=== PATIENT | female | born 1950 | race Two or more races ===

== ENCOUNTER → 2019-02-23 | Day surgery (SDC) | payer OTHER ==
[~2019-02-23] MED LIST: CALCI PO; CLONAZEPAM0.5 MG PO; COZAAR50 MG PO; DICLOFENAC SODI75 MG PO; ESKALITH300 MG PO; FOLIC ACID1 MG PO; KEFLEX250 MG PO; LYRICA200 MG PO; METFORMIN HCL500 MG PO; SYNTHROID100 MCG PO; ULTRACET PO; ZOCOR20 MG PO
== END | disposition home or self-care (01) ==
LOC: ADM 02-16 13:30 → CIR.AMB 05:12
DX: N32.81 Overactive bladder (principal); N39.41 Urge incontinence
CPT/HCPCS: 64581; C1778

== ENCOUNTER 2019-03-02 04:58 | Day surgery (SDC) | payer OTHER | END 2019-03-02 14:40 | disposition home or self-care (01) | LOC: CIR.AMB 04:58 | DX: N32.81 Overactive bladder (principal); N39.41 Urge incontinence; R35.0 Frequency of micturition | CPT/HCPCS: 64590; C1767 ==

== ENCOUNTER 2021-02-27 05:18 | Day surgery (SDC) | payer OTHER ==
[~2021-02-27 05:18] MED LIST changes: +HUMALOG100 UNIT/1; +SYNTH PO
[2021-02-27] MEDS ORDERED: ULTRACET PO (13:37)
[2021-02-27] MEDS ORDERED: KEFLEX750 MG PO (13:38)
== END 2021-02-27 16:10 | disposition home or self-care (01) ==
LOC: CIR.AMB 05:18
PROVIDERS: ATTEND Obstetrics & Gynecology Gynecology
DX: T85.193A Other mechanical complication of implanted electronic neurostimulator, generator, initial encounter (principal); Z20.822 Contact with and (suspected) exposure to COVID-19